=== PATIENT | female | born 1980 | race Caucasian/White ===

== ENCOUNTER 2024-09-08 17:31 | Inpatient (IN) | payer MEDICAID ==
[~2024-09-08] VITALS: Ht 185.4 cm; Wt 63.6 kg
[2024-09-08 19:24] LABS: BASOPHILS % (AUTO) 2.3 % (0.0-2.0); EOSINOPHILS % (AUTO) 2.2 % (1.0-6.0); HEMATOCRIT 33.3 % (36-46); HEMOGLOBIN 10.7 g/dL (12.0-16.0); LYMPHOCYTES # (AUTO) 2.6 K/uL (1.0-4.8); LYMPHOCYTES % (AUTO) 52.2 % (22.0-44.0); MEAN CORPUSCULAR HEMOGLOBIN 22.9 pg (26.0-34.0); MEAN CORPUSCULAR VOLUME 72 fL (80-100); MONOCYTES # (AUTO) 0.5 K/uL (0.1-1.0); MONOCYTES % (AUTO) 9.5 % (2.0-9.0); NEUTROPHILS # (AUTO) 1.7 K/uL (1.8-7.7); NEUTROPHILS % (AUTO) 33.8 % (40.0-70.0); PLATELET COUNT (AUTO) 347 K/uL (150-450); RED BLOOD CELL COUNT(AUTO) 4.66 MIL/uL (4.00-5.20); RED CELL DISTRIBUTION WIDTH 19.7 % (11.5-14.5)
[2024-09-08 19:25] LABS: ANION GAP 6 mmol/L (8-16); CARBON DIOXIDE 27 mmol/L (22-29); CHLORIDE 107 mmol/L (98-107); CREATININE 0.84 mg/dL (0.60-1.30); GLOMERULAR FILTR. RATE CALC > 60 mL/min (>60); GLUCOSE,RANDOM 91 mg/dL (70-110); POTASSIUM 3.5 mmol/L (3.5-5.1); SODIUM SERUM 140 mmol/L (136-145); UREA NITROGEN, BLOOD 11 mg/dL (7-18)
[2024-09-08 19:38] LABS: ALBUMIN 3.7 g/dL (3.4-5.0); BILIRUBIN,DIRECT 0.1 mg/dL (0.00-0.20); BILIRUBIN,TOTAL 0.4 mg/dL (0.1-1.0); TOTAL PROTEIN, SERUM 6.7 g/dL (6.4-8.2); TROPONIN I-HIGH SENSITIVITY 4 ng/L (<51)
[2024-09-08 19:55] LABS: RBC MORPHOLOGY COMMENT ABNORMAL RBC MORPH
[2024-09-08] MEDS: SODIUM CHLORIDE 0.9% 1,000 ML IV ONE (20:05)
[2024-09-08] MEDS: KETOROLAC TROMETHAMINE 30 MG/ML VIAL IVP ONE (20:05)
[2024-09-08] MEDS: ONDANSETRON HCL 4 MG/2 ML VIAL IVP ONE (20:05)
[2024-09-08] MEDS ORDERED: IOHEXOL 350 MG/ML 100 ML VIAL ONE (21:52)
[2024-09-08] MEDS ORDERED: SODIUM CHLORIDE 0.9% 100 ML ONE (21:53)
[2024-09-08] MEDS ORDERED: ONDANSETRON HCL 4 MG/2 ML VIAL IVP PRN (22:00)
[2024-09-08] MEDS: ACETAMINOPHEN 500 MG TABLET PO ONE (22:16)
[2024-09-09] MEDS: HEPARIN SODIUM,PORCINE 5,000 UNITS/ML VIAL SQ SCH (00:04)
[2024-09-09 00:13] VITALS: O2SAT 95
[2024-09-09 00:20] LABS: APPEARANCE,URINE CLEAR (CLEAR); BILIRUBIN,URINE NEGATIVE (NEGATIVE); COLOR,URINE YELLOW (YELLOW); GLUCOSE, URINE (UA) NEGATIVE (NEGATIVE); KETONES,URINE NEGATIVE (NEGATIVE); LEUKOCYTE ESTERASE ,URINE NEGATIVE (NEGATIVE); NITRATE,URINE NEGATIVE (NEGATIVE); OCCULT BLOOD,URINE NEGATIVE (NEGATIVE); PROTEIN,URINE TRACE mg/dL (NEGATIVE); SPECIFIC GRAVITIY, URINE 1.039 (1.003-1.030)
[2024-09-09 00:27] LABS: AMPHET/METH SCREEN,URINE POSITIVE (NEGATIVE); BARBITURATE SCREEN, URINE NEGATIVE (NEGATIVE); BENZODIAZEPINES SCREEN,URINE NEGATIVE (NEGATIVE); CANNABINOID SCREEN,URINE POSITIVE (NEGATIVE); COCAINE SCREEN,URINE NEGATIVE (NEGATIVE); METHADONE SCREEN, URINE NEGATIVE (NEGATIVE); OPIATE SCREEN,URINE NEGATIVE (NEGATIVE); PHENCYCLIDINE SCREEN,URINE NEGATIVE (NEGATIVE)
[2024-09-09 00:38] LABS: ALCOHOL, URINE DRUG SCREEN NEGATIVE (NEGATIVE)
[2024-09-09 01:11] VITALS: BP 113/77; PULSE 77; RESP 18; TEMP 97.6; O2SAT 98
[2024-09-09 05:10] VITALS: BP 110/77; PULSE 70; RESP 18; TEMP 97.8; O2SAT 98
[2024-09-09 07:22] LABS: BASOPHILS % (AUTO) 2.4 % (0.0-2.0); EOSINOPHILS % (AUTO) 2.5 % (1.0-6.0); HEMATOCRIT 29.4 % (36-46); HEMOGLOBIN 9.4 g/dL (12.0-16.0); LYMPHOCYTES # (AUTO) 2.2 K/uL (1.0-4.8); LYMPHOCYTES % (AUTO) 56.9 % (22.0-44.0); MEAN CORPUSCULAR HGB CONC 31.9 G/dL (31.0-37.0); MEAN CORPUSCULAR VOLUME 72 fL (80-100); MONOCYTES # (AUTO) 0.3 K/uL (0.1-1.0); MONOCYTES % (AUTO) 8.7 % (2.0-9.0); NEUTROPHILS # (AUTO) 1.2 K/uL (1.8-7.7); NEUTROPHILS % (AUTO) 29.5 % (40.0-70.0); PLATELET COUNT (AUTO) 274 K/uL (150-450); RED BLOOD CELL COUNT(AUTO) 4.08 MIL/uL (4.00-5.20); RED CELL DISTRIBUTION WIDTH 19.5 % (11.5-14.5); WHITE BLOOD COUNT (AUTO) 3.9 K/uL (4.5-11.0)
[2024-09-09 07:33] VITALS: BP 113/82; PULSE 72; RESP 18; TEMP 97.5; O2SAT 97
[2024-09-09 07:34] LABS: ANION GAP 3 mmol/L (8-16); CALCIUM, TOTAL 8.2 mg/dL (8.8-10.5); CARBON DIOXIDE 29 mmol/L (22-29); CHLORIDE 110 mmol/L (98-107); CREATININE 0.67 mg/dL (0.60-1.30); GLOMERULAR FILTR. RATE CALC > 60 mL/min (>60); GLUCOSE,RANDOM 97 mg/dL (70-110); POTASSIUM 3.9 mmol/L (3.5-5.1); SODIUM SERUM 142 mmol/L (136-145); UREA NITROGEN, BLOOD 12 mg/dL (7-18)
[2024-09-09 09:38] LABS: RBC MORPHOLOGY COMMENT ABNORMAL RBC MORPH
[2024-09-09 15:06] VITALS: BP 110/62; PULSE 69; RESP 18; TEMP 98.2; O2SAT 98
[2024-09-09] MEDS: GABAPENTIN 300 MG CAPSULE PO SCH (15:36)
[2024-09-09] MEDS: TAMSULOSIN HCL 0.4 MG CAPSULE PO SCH (15:37)
[2024-09-09 20:32] VITALS: BP 104/66; PULSE 79; RESP 0; TEMP 97.9; O2SAT 98
[2024-09-10 04:50] VITALS: BP 98/62; PULSE 84; RESP 18; TEMP 98.6; O2SAT 98
[2024-09-10 08:08] VITALS: BP 103/54; PULSE 85; RESP 20; TEMP 97.9; O2SAT 95
[2024-09-10] MEDS: LORazepam 2 MG/ML VIAL IVP ONE ×2 (14:30→15:24)
[2024-09-10 20:00] VITALS: BP 116/70; PULSE 76; RESP 20; TEMP 97.5; O2SAT 99
[2024-09-11 04:00] VITALS: BP 110/62; PULSE 88; RESP 20; TEMP 97.5; O2SAT 100
[2024-09-11 08:03] VITALS: BP 121/63; PULSE 99; RESP 19; TEMP 99.1; O2SAT 99
[2024-09-11 17:08] VITALS: BP 114/66; PULSE 82; RESP 19; TEMP 98.8; O2SAT 100
[2024-09-11] MEDS ORDERED: LORazepam 2 MG/ML VIAL IVP ONE (17:45)
[2024-09-11] MEDS: MethylPREDNISolone SOD SUCC 1,000 MG in SODIUM CHLORIDE 0.9% 50 ML IV SCH (17:58)
[2024-09-11] MEDS ORDERED: SODIUM CHLORIDE 0.9% 500 ML IV ONE (18:00)
[2024-09-11 20:27] VITALS: BP 106/47; PULSE 78; RESP 20; TEMP 97.7; O2SAT 100
[2024-09-12 04:53] VITALS: BP 110/62; PULSE 104; RESP 20; TEMP 97.7; O2SAT 99
[2024-09-12] MEDS: CALCIUM OYSTER SHELL 250 MG-VIT D3 125 UNITS[3.125MCG] TABLET PO SCH (08:05)
[2024-09-12] MEDS: ACETAMINOPHEN 325 MG TABLET PO PRN (08:05)
[2024-09-12] MEDS: PANTOPRAZOLE SODIUM 40 MG DR TABLET PO SCH (08:05)
[2024-09-12 08:10] VITALS: BP 114/72; PULSE 92; RESP 18; TEMP 98.8; O2SAT 100
[2024-09-12] MEDS: LORazepam 2 MG/ML VIAL IVP ONE ×2 (09:45→15:29)
[2024-09-12 15:15] VITALS: BP 116/69; PULSE 93; RESP 18; TEMP 99; O2SAT 100
[2024-09-12] MEDS: diazePAM 5 MG TABLET PO ONE (15:44)
[2024-09-12 19:51] VITALS: BP 117/73; PULSE 78; RESP 18; TEMP 98.4; O2SAT 97
[2024-09-13 02:21] VITALS: BP 112/67; PULSE 91; RESP 18; TEMP 97.7; O2SAT 98
[2024-09-13 08:01] VITALS: BP 124/68; PULSE 106; RESP 18; TEMP 98.2; O2SAT 99
[2024-09-13] MEDS ORDERED: diazePAM 5 MG TABLET PO ONE (12:00)
== END 2024-09-13 12:27 | disposition left against medical advice (07) | DRG 43 ==
LOC: EMS 17:31 → EDH 21:48 → 4E 09-09 01:09
PROVIDERS: ADMIT Internal Medicine; ATTEND Internal Medicine
DX: G35 Multiple sclerosis (principal); D50.9 Iron deficiency anemia, unspecified; F15.10 Other stimulant abuse, uncomplicated; F17.210 Nicotine dependence, cigarettes, uncomplicated; F43.10 Post-traumatic stress disorder, unspecified; F99 Mental disorder, not otherwise specified; R33.9 Retention of urine, unspecified; Z53.29 Procedure and treatment not carried out because of patient's decision for other reasons; G40.909 Epilepsy, unspecified, not intractable, without status epilepticus; Z88.1 Allergy status to other antibiotic agents; Z88.2 Allergy status to sulfonamides; Z88.3 Allergy status to other anti-infective agents; Z91.199 Patient's noncompliance with other medical treatment and regimen due to unspecified reason; Z76.5 Malingerer [conscious simulation]
CPT/HCPCS: 70450; 70551; 74177; 80048; 80076; 80307; 81003; 83690; 83735; 84484; 84703; 85025; 93005; 96361; 96374; 96375; 97116; 97162; 97165; 97530; 97535; 99285; G0378; G0480; J1644; J1885; J2060; J2405; J2919; J7030; J7040; J7050; 36415-L1; 36415-TC